=== PATIENT | male | born 1985 | race Caucasian/White ===

== ENCOUNTER 2018-01-02 20:21 | Emergency (ER) | payer SELFPAY ==
[2018-01-02] MEDS ORDERED: CEPHALEXIN 500 MG CAPSULE PO STA (20:51)
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
== END 2018-01-02 21:15 | disposition home or self-care (01) ==
LOC: ER 20:21
DX: L03.116 Cellulitis of left lower limb (principal); L55.1 Sunburn of second degree; F17.210 Nicotine dependence, cigarettes, uncomplicated
CPT/HCPCS: 99282